=== PATIENT | male | born 1975 | race Caucasian/White ===

== ENCOUNTER 2021-08-15 12:07 | Inpatient (IN) | payer OTHER ==
[~2021-08-15] VITALS: Ht 177.8 cm; Wt 84.3 kg
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
[2021-08-15] MEDS ORDERED: OXYCODONE HCL5 MG PO (13:28)
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
--- NOTE | 2021-08-15 18:12 | NUR ---
both nares swabbed for covid-19 without complcation. sample taken to lab.
--- NOTE | 2021-08-15 18:35 | NUR ---
Patient voided, pain medications given, Dietary called regarding his dinner not being delivered, they are to bring him a tray
--- NOTE | 2021-08-15 19:48 | NUR ---
REPORT RECEIVED FROM DAY SHIFT RN. PT LYING IN BED ALERT AND ORIENTED. REPORTS LEFT SIDE PAIN 12/15. PRN FOR PAIN ADMIN PER EMAR. FRESH ICE PACK TO LEFT CLAVICLE. CHEST TUBE INTACT WITH SCANT AMOUNT SANGUINEOUS DRAINAGE IN TUBING. 2L/NC IN PLACE. PT DENIES FURTHER NEEDS. WHITE BOARD UPDATED. CALL LIGHT IN REACH.
--- NOTE | 2021-08-15 21:55 | NUR ---
EVENING ASSESSMENT COMPLETE. SCHEDULED MEDS ADMINISTERED PER EMAR. PT REPORTS LEFT SHOULDER/RIB PAIN 10/15. PRN FOR PAIN ADMIN PER EMAR. PT DENIES SOB. SpO2 99% WITH 2L/NC. RESPIRATIONS SHALLOW. EDUCATION PROVIDED AND PT ENCOURAGED TO DEEP BREATHE. PT RECEPTIVE BUT REPORTS INCREASED PAIN. CHEST TUBE TO 20 CM WALL SUCTION CONTINUOUS. NO AIR LEAK NOTED. SMALL AMOUNT SANGUINEOUS DRAINAGE NOTED IN TUBING. LUE ELEVATED ON PILLOW. BRUISING ON CLAVICLE NOTED. CMS INTACT. ICE PACK IN PLACE. PT DENIES QUESTIONS OR CONCERNS AT THIS TIME. CALL LIGHT IN REACH.
--- NOTE | 2021-08-15 23:25 | NUR ---
PT REPORTS LEFT RIB PAIN 10/15. PRN FOR PAIN ADMIN PER EMAR. SpO2 100% ON 2L/NC. HR 60'S. PT DENIES SOB. NO FURTHER NEEDS. CALL LIGHT IN REACH.
--- NOTE | 2021-08-16 00:37 | NUR ---
PT REPORTS CONTINUED LEFT RIB/CLAVICLE PAIN 10/15. PRN FOR PAIN ADMIN PER EMAR. FRESH ICE PACK WRAPPED IN TOWEL TO LEFT CLAVICLE. PT DENIES SOB. RESPIRATIONS SHALLOW. PT ABLE TO COUGH/DEEP BREATHE. FLUCTUATION NOTED IN CHEST TUBE CHAMBER. 2L/NC IN PLACE.
--- NOTE | 2021-08-16 01:48 | NUR ---
VS AND I&O COMPLETE. PT REPORTS LEFT RIB/CLAVICLE PAIN 10/15. PRN FOR PAIN ADMIN PER EMAR. NEW BAG IVF INFUSING WNL. PT REPOSITIONED IN BED WITH 3PA. TIAN FAIR. DRIED MUD CLEANED OFF PT HANDS. MUD NOTED IN PT BED WELL AND CLEANED MUCH PT TOLERATED. NO FURTHER NEEDS. CALL LIGHT IN REACH.
--- NOTE | 2021-08-16 04:27 | NUR ---
PT RESTING IN BED WITH EYES CLOSED. RESPIRATIONS EVEN. CALL LIGHT IN REACH.
--- NOTE | 2021-08-16 05:52 | NUR ---
VS AND I&O COMPLETE. ASSESSMENT COMPLETE. CHEST TUBE TO WALL SUCTION. 60 ML SANGUINEOUS DRAINAGE THIS SHIFT. FLUCTUATION WITH DEEP BREATHING NOTED. PT DENIES SOB. 2L/NC IN PLACE. SpO2 100%. INCENTIVE SPIROMETER AND EDUCATION PROVIDED. PT DEMONSTRATED PROPER USE ALTHOUGH HESITANT DUE TO PAIN. DRESSING LEFT LATERAL SIDE INTACT WITH OLD SHADOWING NOTED. LUE ELEVATED ON PILLOW. BRUISING TO CLAVICLE NOTED. CMS INTACT. PT DUE TO VOID. BLADDER SCAN >600 ML. PT ATTEMPTING TO VOID AGAIN.
--- NOTE | 2021-08-16 06:53 | NUR ---
PT UP TO BSC WITH 2PA TO VOID 850 ML. BACK TO BED, TIAN FAIR. PRN FOR PAIN ADMIN PER EMAR FOR 6/10 LEFT SHOULDER/RIB PAIN. NO FURTHER NEEDS. CALL LIGHT IN REACH.
--- NOTE | 2021-08-16 07:35 | NUR ---
RECEIVED REPORT FROM NIGHT RN, ASSUMED ALL CARE OF PT. RESTING IN BED, AWAKE ALERT, NO SIGNS OF DISTRESS, IVF INFUSING
--- NOTE | 2021-08-16 09:47 | NUR ---
PATIENT IN BED WATCHING TV AT THIS TIME. VITALS AND I&O'S CHARTED. CALL LIGHT IN REACH. FRESH WATER GIVEN. NO FURTHER NEEDS AT THIS TIME.
--- NOTE | 2021-08-16 09:57 | NUR ---
IMAGING IN TO DO LEFT CLAVICLE X-RAY FOR DR. HESS CONSULTATION.
--- NOTE | 2021-08-16 10:24 | NUR ---
ROUNDED ON PATIENT, RESTING COMFORTABLY, IN BED, CXR COMPLETED THIS AM, LUNG SOUNDS CLEAR BILATERALLY, PAIN IS CONTROLLED AT THIS TIME, RATES 5/10, DOES NOT WANT ANY ADDITIONAL PAIN MEDS AT THIS TIME. GOOD APPETITE, ADEQUATE FLUID INTAKE, CT PATENT TO WATER SEAL, NO BUBBLING. IVF SALINE LOCKED. 2L 02 PER NC. ORTHO TO CONSULT L CLAVICLE.
--- NOTE | 2021-08-16 12:07 | NUR ---
ROUNDED ON PT. WATCHING TV, STATES PAIN IS TOLERABLE AT THIS POINT, HE IS AWAITING ORTHO CONSULT FOR FURTHER TREATMENT PLAN, 2 IV'S PATENT, ADEQUATE FLUID INTAKE, GOOD APPETITE, HAS TO USE THE BR WHEN HE NEEDS TO URINATE AND ASSISTANCE WILL BE PROVIDED WITH IS CHEST TUBE
--- NOTE | 2021-08-16 12:56 | NUR ---
PT. STATES PAIN IS SLIGHTLY GOING UP, TOO EARLY FOR HIS OXYCODONE SO GAVE DILAUDID 0.5 MG IV FOR LEFT SIDE PAIN 5/10, LEFT CLAVICLE/LEFT RIBS AND CHEST. CT PATENT PUT OUT 25 ML SEROUS FLUID SO FAR THIS SHIFT. GOOD BREATH SOUNDS BILATERAL
--- NOTE | 2021-08-16 13:11 | NUR ---
I was albe to visit with Mr. Eisenberg today who states that his care has been good while in the hospital and in the emergency department. He expresses no concerns and denies any questions at this time. He answers questions appropriately, and is watching T.V. with respirations even and unlabored, he does report that his ribs are sore.
--- NOTE | 2021-08-16 13:19 | NUR ---
ACUTE ON CHRONIC LEFT SIDE PAIN CONTINUES, TOLERATING PAIN WELL, GAVE OXYCODONE 10 MG PO FOR CONTINUED PAIN, HE TAKES OXYCODONE 5MG PO Q 4 HRS AT HOME WITH A MAX OF 6 DAILY AND IS FOLLOWED BY PAIN CLINIC. LOWEST PAIN RATE IS 4-5.
--- NOTE | 2021-08-16 14:04 | NUR ---
PT ON PHONE, WILL CHECK BACK
--- NOTE | 2021-08-16 14:07 | NUR ---
PATIENT SITTING UP IN BED WATCHING TV. VITALS CHARTED. CALL LIGHT IN REACH. NO FURTHER NEEDS AT THIS TIME.
[2021-08-16] MEDS ORDERED: OXYCODONE-ACET1 EAC1 PO (15:07)
--- NOTE | 2021-08-16 15:26 | NUR ---
ROUNDED ON PT., HE HAS BEEN SEEN BY ORTHO AND THE PLAN IS TO WAIT A COUPLE WEEKS FOR PNEUMOTHORAX COMPLETE HEALING AND THEN ORIF OF LEFT CLAVICLE. PAIN CONTROL AND ICE THERAPY WITH A SLING IN THE MEAN TIME. ALL VSS SO FAR THIS SHIFT. PAIN CONTROLLED WITH PRN PAIN MEDS AND POSITIONING. USES THE URINAL WHEN NEEDED. ADEQUATE FLUID INTAKE. CALL MARIANO NEARBY
--- NOTE | 2021-08-16 17:59 | NUR ---
NOTE FOR 1700: POWER OUTAGE CAUSED DELAY IN CHARTING, ORDERS FOR POLAR CARE DEVICE AND SLING FOR LEFT ARM/CLAVICLE FROM DR. HESS BUT THE PATIENT DID NOT WANT TO BE LIABLE FOR COST OF POLAR CARE SO HE REFUSED THIS DEVICE. BAG ICE WAS GIVEN AND WILL ALTERNATE OFF AND ON TOLERATED. WILL USE IMMOBILIZER WHEN UP AND AMBULATING. PLAN TO AMBULATE PT. CHEST TUBE OUTPUT 60 ML SEROUS FLUID FOR THIS 12 HOUR SHIFT, WOUND CARE PHYSICIAN OUTPUT WAS THE SAME. PER CXR NEAR COMPLETE RESOLUTION OF PNUEMOTHORAX LEFT LUNG. LUNGS CLEAR BILATERALLY, SLIGHTLY DIMINISHED IN LEFT THAN RIGHT SIDE. PLANNED CXR AND LABS FOR THE AM. SALINE LOCK IV'S, APPETITE GOOD, ADEQUATE FLUIDS, PAIN CONTROLLED THIS SHIFT WITH OXYCODONE 10 MG PO Q 6 HR. SLIGHTLY SLEEPY THIS AFTERNOON AFTER PAIN MEDS. USES THE URINAL. RESTED QUIETLY MOST OF THE DAY.
--- NOTE | 2021-08-16 19:03 | NUR ---
PATIENT SITTING UP IN BED EATING DINNER. VITALS AND I&O'S CHARTED. CALL LIGHT IN REACH. NO FURTHER NEEDS AT THIS TIME.
--- NOTE | 2021-08-16 19:28 | NUR ---
REPORT RECEIVED FROM DAY SHIFT RN. PT LYING IN BED ALERT AND ORIENTED. DENIES NEEDS AT THIS TIME. O2 2L/NC IN PLACE. CHEST TUBE TO 20 CM WALL SUCTION. WHITE BOARD UPDATED. CALL LIGHT IN REACH.
--- NOTE | 2021-08-16 20:58 | NUR ---
EVENING ASSESSMENT COMPLETE. SCHEDULED MEDS ADMIN PER EMAR. PT REPORTS LEFT SHOULDER/RIB PAIN 10/15. PRN FOR PAIN ADMIN PER EMAR. PT DENIES SOB. USING INCENTIVE SPIROMETER. 2L/NC IN PLACE. CHEST TUBE TO LEFT LATERAL SIDE PATENT TO 20 CM WALL SUCTION. 20 ML SEROSANG DRAINAGE CHARTED. DRESSING INTACT WITH OLD SHADOWING. LUE ELEVATED ON PILLOW WITH ICE PACK. BRUISING AND EDEMA NOTED. CMS INTACT. 2PA TO REPOSITION IN BED. DENIES QUESTIONS OR CONCERNS. CALL LIGHT IN REACH.
--- NOTE | 2021-08-16 23:05 | NUR ---
PT REPORTS LEFT SIDE/BACK PAIN 10/15. PRN FOR PAIN ADMIN PER EMAR. NO FURTHER NEEDS. CALL LIGHT IN REACH.
--- NOTE | 2021-08-17 00:16 | NUR ---
PT RESTING IN BED WITH EYES CLOSED. RESPIRATIONS EVEN. CALL LIGHT IN REACH.
--- NOTE | 2021-08-17 02:37 | NUR ---
PRN FOR PAIN ADMIN FOR 6/10 LEFT SIDE/BACK PAIN. LUE ELEVATED ON PILLOW. FRESH ICE PACK IN PLACE. CMS INTACT. PT DENIES SOB OR DIFFICULT BREATHING. REPORTS HE HAS BEEN USING INCENTIVE SPIROMETER. REPORTS "STUFFY" NOSE AND HAS OXYGEN REMOVED. SpO2 96% ON RA. HR 60'S. HUMIDIFICATION ADDED. 2L/NC BACK IN PLACE. CHEST TUBE WITH 30 ML SEROSANG DRAINAGE. FRESH ICE WATER PROVIDED. PT DENIES FURTHER NEEDS. CALL LIGHT IN REACH.
--- NOTE | 2021-08-17 04:30 | NUR ---
PT RESTING IN BED WITH EYES CLOSED. RESPIRATIONS EVEN. CALL LIGHT IN REACH.
--- NOTE | 2021-08-17 06:48 | NUR ---
VS AND I&O COMPLETE. PRN ADMIN PER EMAR FOR 6/10 LEFT SIDE PAIN. DENIES FURTHER NEEDS AT THIS TIME. CALL LIGHT IN REACH.
--- NOTE | 2021-08-17 07:05 | NUR ---
BEDSIDE REPORT FROM ARCHIE RN, PT ALERT AND ORIENTED, CHEST TUBE TO SUCTION, NO AIR LEAKS NOTED IN WATER SEAL CHAMBER.
--- NOTE | 2021-08-17 08:41 | NUR ---
PT RESTING IN BED, ALERT AND ORIENTED. HE REPORTS PAIN 6/10 ON LEFT CHEST WALL, BACK AND SHOULDER. WILL ADMINISTER OXYCODONE 10MG PO PRN AND TYLENOL 1000MG PO PRN AT THIS TIME. CHEST TUBE TO WALL SUCTION. NO LEAKS NOTED IN WATER SEAL CHAMBER.
--- NOTE | 2021-08-17 10:00 | NUR ---
WITH STUDENTS FROM [facility] AT BEDSIDE TO REMOVE CHEST TUBE, PT TOLERATED WELL. OCCLUSIVE DRESSING PLACED. AFTER PROCEDURE PT REPORTS PAPIN 11/14, PT ADMINISTERED 0.5MG IV DILAUDID, D/C THIS MEDICATION, HOWEVER HE SAID TO GIVE THIS LAST DOSE. SAID TO TRY TO MANAGE PAIN WITH PO PAIN MEDICATIONS MUCH POSSIBLE HE WILL LIKELY D/C SOON.
--- NOTE | 2021-08-17 11:40 | NUR ---
Spoke with Enzo. He states he does not have a pcp. He did see Dr. Chua, but he retired. He thinks he was reassigned, but not sure. Called and spoke with [facility]. He was reassigned to Cinthya Martinez PA-C. Pt did not establish care, personnel scheduler will check if Cinthya will accept this pt and call he or his to set appt.
--- NOTE | 2021-08-17 11:58 | NUR ---
PT AMBULATED IN HALLS TO NURSES STATION AND BACK TO ROOM, HE STOOD AT BEDSIDE WHILE FULL LINENS CHANGED ON BED, PT THEN ASSISTED BACK TO BED. PT HAS SLING ON WHILE AMBULATING TO SUPPORT LEFT ARM/SHOULDER. PT TOLERATED ACTIVITY WELL, STEADY GAIT, STANDBY ASSIST, NO LIGHT HEADED OR DIZZINESS PER PT REPORT.
--- NOTE | 2021-08-17 12:27 | NUR ---
PT REPORTS PAIN 10/15, HE IS RESTING IN BED, MOTRIN PO PRN ADMINISTERED AT THIS TIME, DISCUSSED WHEN NEXT PAIN MEDICATION IS AVAILABLE AT 1440, DISCUSSED WITH PT THAT IF HIS PAIN BECOMES INTOLERABLE BEFORE THEN TO CALL THIS RN. PT IS APPROPRIATE WITH EXPECTATIONS AND TRYING TO TRANSITION TO PO PAIN MANAGEMENT ONLY.
--- NOTE | 2021-08-17 13:18 | NUR ---
PT ALERT, ORIENTED AND SITTING UP IN BED-L ARM IN SLING. LUNCH HAS JUST BEEN DELIVERED. GAVE ENCOURAGEMENT, PT THANKED ME. LEFT G.POST, WILL FOLLOW
--- NOTE | 2021-08-17 13:28 | NUR ---
CALLED PACU TO LEAVE MESSAGE FOR TO CALL THE FLOOR DUE TO PAIN MANAGEMENT ISSUE, CALLED BACK DISCUSSED PT PAIN REGIME, PT PAIN REMAINED 8/ GAVE DOSE OF IV MORPHINE, SAID HE WOULD PUT ORDERS IN
--- NOTE | 2021-08-17 14:01 | NUR ---
PT AMBULATED FULL LAP ON MED/SURG UNIT WITH HIS AND [employer] DRIER TENDER. PT TOLERATED WELL WITH INCREASED PAIN.
--- NOTE | 2021-08-17 14:05 | NUR ---
MARICRUZT IS IN BED. IS VISITING. VITALS AND I&O CHARTED. CALL LIGHT IN REACH. NO FURTHER TASKS AT THIS TIME.
--- NOTE | 2021-08-17 14:59 | NUR ---
Faxed face sheet, H&P, surgical note, Consult note, progress notes to [facility]. requesting for pt to establish care.
--- NOTE | 2021-08-17 16:38 | NUR ---
PT RESTING IN BED HIS IS SITTING ON ROOM COUCH USING LAP TOPS FROM HOME. PT REPORTS PAIN IS IMPROVED FROM DILAUDID, PAIN IS STILL 5/10 WILL GIVE ANOTHER 4MG PO PRN DILAUDID AT 1700. UPDATED PT ON STABLE REPORT FROM AFTERNOON CXR.
--- NOTE | 2021-08-17 17:16 | NUR ---
PT REPORTS PAIN 6/10, DILAUDID PO PRN 4MG AT THIS TIME, V/S STABLE, PT REPORTS BETTER PAIN MANAGEMENT WITH DILAUDID PO. NEW ICE PACK PROVIDED, NO OTHER CONCERNS, PT HAD BM.
--- NOTE | 2021-08-17 18:00 | NUR ---
PT HAS BEEN UP TO AMBULATE IN HALLS TWICE, HIS PAIN IS MUCH IMPROVED THIS AFTERNOON, HE IS VOIDING Q.S., TOLERATING DIET WELL. NO NEW CONCERNS REPEAT CXRAY POST CHEST TUBE REMOVED SHOWS STABLE RESOLVED PNX. PT AMBULATED IN HALLS WELL, STEADY GAIT, STANDBY ASSIST. HE HAS BEEN UP TO BATHROOM HAD BM.
[2021-08-17] MEDS ORDERED: MILK OF MA400 MG/5 M PO (18:29)
[2021-08-17] MEDS ORDERED: ACETAMINOPHEN500 MG PO (18:29)
[2021-08-17] MEDS ORDERED: IBUPROFEN600 MG PO (18:29)
[2021-08-17] MEDS ORDERED: FAMOTIDINE20 MG PO (18:30)
[2021-08-17] MEDS ORDERED: HEALTHYLAX17 GM PO (18:30)
[2021-08-17] MEDS ORDERED: DILAUDID4 MG PO (18:32)
--- NOTE | 2021-08-17 19:34 | NUR ---
REPORT RECEIVED FROM DAY SHIFT RN. PT LYING IN BED ALERT AND ORIENTED EATING DINNER. REPORTS PAIN IS TOLERABLE. DENIES NEEDS. WHITE BOARD UPDATED. CALL LIGHT IN REACH.
--- NOTE | 2021-08-17 21:03 | NUR ---
EVENING ASSESSMENT COMPLETE. SCHEDULED MEDS ADMIN PER EMAR. PRN FOR PAIN ADMIN FOR 5/10 LEFT SIDE PAIN. PT DENIES SOB. SpO2 93-94%. RESPIRATIONS SHALLOW. PT USING INCENTIVE SPIROMETER. DRESSING TO LEFT LATERAL SIDE CDI FROM DC'D CHEST TUBE. LUE ELEVATED ON PILLOWS. BRUISING AND EDEMA NOTED. ICE PACK TO CLAVICLE. LINENS PROVIDED FOR TO STAY THE NIGHT. PT DENIES QUESTIONS OR CONCERNS. CALL LIGHT IN REACH.
--- NOTE | 2021-08-18 00:38 | NUR ---
CALL LIGHT ANSWERED. PT REQUESTING PRN FOR PAIN. PRN ADMIN PER EMAR FOR 6/10 LEFT SIDE PAIN. SpO2 94% ON RA. HR 70'S. PT DENIES SOB OR DIFFICULTY BREATHING. NO FURTHER NEEDS. CALL LIGHT IN REACH.
--- NOTE | 2021-08-18 02:04 | NUR ---
SCHEDULED PAIN MEDS ADMINISTERED. PT REPORTS LEFT SIDE PAIN 09/14. DENIES SOB. FRESH ICE WATER PROVIDED. IN ROOM ON COUCH. NO FURTHER NEEDS.
--- NOTE | 2021-08-18 05:56 | NUR ---
CALL LIGHT ANSWERED. PRN FOR PAIN ADMIN FOR 6/10 LEFT SIDE/CLAVICLE PAIN. FRESH ICE PACK TO LEFT CLAVICLE. LUE ELEVATED ON PILLOW. CMS INTACT. PT DENIES SOB. DRESSING ON LEFT SIDE INTACT WITH SMALL AMOUNT OLD SHADOWING. SpO2 99% ON RA. RESPIRATIONS EVEN. PT DENIES FURTHER NEEDS. CALL LIGHT IN REACH.
--- NOTE | 2021-08-18 07:39 | NUR ---
REPORT RECIEVED. PT LEFT IN ROOM UNDISTURBED. PT INDEPENDENT IN ROOM.
--- NOTE | 2021-08-18 08:54 | NUR ---
ASSESSMENT COMPELTED. PT IN BED WITH ICE ON LEFT SHOULDER. PAIN REPORTED 6/10 AND PT REPORTS IT IS CONSISTENT AND DOESN'T REALLY GO DOWN. IS AT BEDSIDE. LUNGS CLEAR. SHEDULED MEDS ADMISNTERED. CALL LIGHT IN REACH. DENEIS FURTHER NEEDS.
--- NOTE | 2021-08-18 09:50 | NUR ---
PT REPORTING 6/10 PAIN. NO IMPROVEMENT FROM MORNING TYLENOL AND MOTRIN. 8MG DILAUDID ADMISNTERED.
--- NOTE | 2021-08-18 12:23 | NUR ---
DISCHARGE INSTRUCTIONS PROVIDED. PT WITH NO QUESTIONS. PHARMACY IN TO DISCUSS MEDICAIOTNS. 8MG DILAUDID ADMINSTERED FOR RIDE HOME AND CURRENT PAIN.
--- NOTE | 2021-08-18 12:43 | NUR ---
PT DRESSED, L ARM IN SLING WALKING IN HALLWAY WITH HIS . PT IS TAKING VERY DELIBERATE STEPS, BUT FEELS GOOD WALKING. PLAN TO DC TODAY, GAVE ENCOURAGEMENT WILL FOLLOW
== END 2021-08-18 12:23 | disposition home or self-care (01) | DRG 200 ==
LOC: ED 12:07 → MS 15:46
PROVIDERS: ADMIT Surgery; ATTEND Surgery
PROC: 0W9B30Z Drainage of Left Pleural Cavity with Drainage Device, Percutaneous Approach (ICD-10-PCS; principal; 2021-08-15)
DX: S27.2XXA Traumatic hemopneumothorax, initial encounter (principal); S22.42XA Multiple fractures of ribs, left side, initial encounter for closed fracture; Z20.822 Contact with and (suspected) exposure to COVID-19; S42.022A Displaced fracture of shaft of left clavicle, initial encounter for closed fracture; V22.0XXA Motorcycle driver injured in collision with two- or three-wheeled motor vehicle in nontraffic accident, initial encounter
CPT/HCPCS: 00520; 36415; 70450; 71045; 71260; 72125; 73000; 74177; 80048; 80053; 85025; 96374; 96376; 99285-25; A9270; C9803; J1170; J1885; J2001; J2270; J2704; J3010; J7121; Q9967; U0003